=== PATIENT | male | born 1965 | race African-American/Black ===

== ENCOUNTER 2017-02-06 17:25 | Emergency (ER) | payer BC ==
[2017-02-06] MEDS ORDERED: Famotidine/PF 20 mg/2ml Vial ONE (17:37)
[2017-02-06] MEDS ORDERED: diphenhydrAMINE HCl 50 MG/ML 1 ML VIAL ONE (17:37)
[2017-02-06] MEDS ORDERED: methylPREDNISolone Sod Succ/PF 125 MG/2 ML VIAL ONE (17:38)
== END 2017-02-06 18:31 | disposition home or self-care (01) ==
LOC: SCSER 17:25
DX: T78.40XA Allergy, unspecified, initial encounter (principal); E78.00 Pure hypercholesterolemia, unspecified; F17.210 Nicotine dependence, cigarettes, uncomplicated; Z79.899 Other long term (current) drug therapy
CPT/HCPCS: 96374; 96375; J1200; J2930; S0028

== ENCOUNTER 2023-03-25 08:45 | Emergency (ER) | payer BC ==
[2023-03-25 10:06] LABS: SARS-CoV-2 NAA Rapid Test Not Detected (NotDetected)
[2023-03-25] MEDS ORDERED: Dexamethasone 10 MG/ML VIAL ONE (10:14)
[2023-03-25] MEDS ORDERED: Ketorolac Tromethamine 30 MG/ML VIAL ONE (10:14)
[2023-03-25] MEDS ORDERED: Lidocaine 1% PF 5 ML VIAL ONE (10:18)
[2023-03-25] MEDS ORDERED: cefTRIAXone (ROCEPHIN) 1 GM VIAL ONE (10:18)
== END 2023-03-25 10:44 | disposition home or self-care (01) ==
LOC: ERS 08:45
DX: J18.9 Pneumonia, unspecified organism (principal); J10.1 Influenza due to other identified influenza virus with other respiratory manifestations; I10 Essential (primary) hypertension; K21.9 Gastro-esophageal reflux disease without esophagitis; F17.210 Nicotine dependence, cigarettes, uncomplicated; Z20.822 Contact with and (suspected) exposure to COVID-19; Z79.82 Long term (current) use of aspirin; Z79.899 Other long term (current) drug therapy
CPT/HCPCS: 71045; 96372; J0696; J1100; J1885

== ENCOUNTER 2023-06-02 21:47 | Emergency (ER) | payer BC ==
[2023-06-02 22:24] LABS: Bacteria/HPF None Seen HPF (None Seen); Bilirubin Negative (Negative); Blood, Urine Negative (Negative); CAUTI Indications for Culture Pelvic or flank pain; Clarity Clear (Clear); Glucose, Urine (Dipstick) Normal (Negative); Ketone, Urine Negative (Negative); Leukocyte Negative Leu/uL (Negative); Nitrite Negative (Negative); Protein, Urine (Dipstick) Negative (Neg-Trace); RBC/HPF 0-3 HPF (0-3); Specific Gravity, Urine 1.008 (1.002-1.036); Squamous Epithelial None Seen HPF (0-3); Urobilinogen Normal mg/dL (Less than 2); WBC/HPF None Seen HPF (0-3)
[2023-06-02 22:25] LABS: Urine Culture Reflex No No
[2023-06-02] MEDS ORDERED: Bicillin LA 2.4 MILL.UNITS/4 ML SYRINGE ONE (22:44)
[2023-06-02] MEDS ORDERED: Azithromycin 250 MG TAB ONE (22:44)
[2023-06-03 12:27] LABS: Chlam.trachomatis by PCR,Urine Not Detected (NotDetected); GC N.gonorrhoeae PCR,UrineVOID Not Detected (NotDetected)
[2023-06-03 14:24] LABS: Syphilis Antibody Index 14.82 S/CO (<1.00 Non-Reactive)
[2023-06-03 14:28] LABS: Syphilis Antibody INDETERMINATE (Nonreactive)
== END 2023-06-02 22:55 | disposition home or self-care (01) ==
LOC: ERS 21:47
DX: Z20.2 Contact with and (suspected) exposure to infections with a predominantly sexual mode of transmission (principal); I10 Essential (primary) hypertension; F17.210 Nicotine dependence, cigarettes, uncomplicated
CPT/HCPCS: 36415; 81001; 86593; 86780; 87491; 87591; 96372; 99283; J0561

== ENCOUNTER 2025-01-16 16:02 | Emergency (ER) | payer OTHER ==
[2025-01-16] MEDS ORDERED: Ketorolac Tromethamine 30 MG (1 mL) VIAL ONE (17:51)
== END 2025-01-16 17:55 | disposition home or self-care (01) ==
LOC: ERS 16:02
DX: S93.402A Sprain of unspecified ligament of left ankle, initial encounter (principal); X50.1XXA Overexertion from prolonged static or awkward postures, initial encounter; Y99.0 Civilian activity done for income or pay
CPT/HCPCS: 96372; 99283; J1885